=== PATIENT | male | born 1990 | race Hispanic/Latino ===

== ENCOUNTER 2022-04-11 13:32 | Emergency (ER) | payer OTHER ==
[2022-04-11 15:48] LABS: Bilirubin Negative (Negative); Blood, Urine Negative (Negative); Clarity Hazy (Clear); Glucose, Urine (Dipstick) Normal (Negative); Ketone, Urine Negative (Negative); Leukocyte Negative Leu/uL (Negative); Nitrite Negative (Negative); Protein, Urine (Dipstick) Negative (Neg-Trace); Specific Gravity, Urine 1.022 (1.002-1.036); Urobilinogen Normal mg/dL (Less than 2)
[2022-04-12 11:24] LABS: Chlam.trachomatis by PCR,Urine Not Detected (NotDetected)
== END 2022-04-11 17:40 | disposition home or self-care (01) ==
LOC: ERS 13:32
DX: I86.1 Scrotal varices (principal); N50.89 Other specified disorders of the male genital organs
CPT/HCPCS: 76870; 81003; 87491; 87591; 93976